=== PATIENT | female | born 1950 | race Caucasian/White ===

== ENCOUNTER 2021-05-24 09:20 | Day surgery (SDC) | payer MEDICARE, BC ==
[2021-05-24] MEDS ORDERED: Lactated Ringers 1,000 ML IV SCH (09:30)
[2021-05-24] MEDS ORDERED: Sodium Chloride 0.9% 10 ML Syringe FLUSH PRN (09:30)
[2021-05-24] MEDS ORDERED: Midazolam 1 MG/ML 2 ML SDV ONE (10:02)
[2021-05-24] MEDS ORDERED: Propofol 200 MG/20 ML SDV ONE (10:02)
== END 2021-05-24 12:35 | disposition home or self-care (01) ==
LOC: KA.SDS 09:20
PROVIDERS: ATTEND Family Medicine
DX: Z12.11 Encounter for screening for malignant neoplasm of colon (principal); K64.4 Residual hemorrhoidal skin tags; K57.30 Diverticulosis of large intestine without perforation or abscess without bleeding; I10 Essential (primary) hypertension; I48.0 Paroxysmal atrial fibrillation; E66.9 Obesity, unspecified; E78.5 Hyperlipidemia, unspecified; M06.9 Rheumatoid arthritis, unspecified; Z90.49 Acquired absence of other specified parts of digestive tract; Z98.890 Other specified postprocedural states; Z79.899 Other long term (current) drug therapy; Z88.8 Allergy status to other drugs, medicaments and biological substances; Z88.5 Allergy status to narcotic agent; Z20.822 Contact with and (suspected) exposure to COVID-19
CPT/HCPCS: 00812; J2250; J2704; J3490; J7120